=== PATIENT | female | born 1930 | race Caucasian/White ===

== ENCOUNTER → 2016-10-13 | Day surgery (SDC) | payer MEDICARE, OTHER ==
[~2016-10-13] VITALS: Ht 160 cm; Wt 77.5 kg
[~2016-10-13] MED LIST: AMLO10TA2 PO; BUPIVACAINE HCL PF 0.5% 30 ML VIAL ONE; CEPH-459 PO; CEPH-460 PO; CHLORHEXIDINE GLUCONATE 2 % 1 PACK (2 CLOTHS) TOPICAL PRN; FAMOTIDINE 20 MG/2 ML VIAL ONE; HYDR25TA5 PO; INSULIN HUMAN REGULAR 1,000 UNITS/10 ML VIAL SQ PRN; LACTATED RINGER'S 1000 ML IV PRN; LIDOCAINE HCL 2% 50 ML VIAL ONE; MAGN100T2 PO; MAGN250T11 PO; METOPROLOL TARTRATE 25 MG TAB PO PRN; NEOMYCIN/POLYMYXIN 1 ML G.U. IRRIGANT ONE; POTA-163 PO; POVIDONE IODINE 5% (ANTISEPSIS KIT) 4 APPLICATIONS EACH NARE PRN; PRIM50TA5 PO; PROPOFOL 200 MG/20 ML AMP IV ONE; SODIUM CHLORID 0.9% 500 ML IV PRN; TYLE325T PO; TYLETAB34 PO; ceFAZolin 1,000 MG/NS 100 ML IV SCH
[2016-10-13 10:30] LABS: HEMATOCRIT 45.2 % (35.0-46.0); MEAN CELL VOLUME 87.2 FL (80.0-100.0); MEAN CORPUSCULAR HEMOGLOBIN 28.6 PG (27.0-34.0); MEAN CORPUSCULAR HGB CONC 32.8 % (32.0-36.0); PLATELET COUNT 281 TH/MM3 (150-450); RED BLOOD COUNT 5.19 MIL/MM3 (4.00-5.30); RED CELL DISTRIBUTION WIDTH 12.9 % (11.6-17.2); REVIEW FLAG FINAL; WHITE BLOOD COUNT 8.9 TH/MM3 (4.0-11.0)
[2016-10-13] MEDS: MIDAZOLAM HCL 2 MG/2 ML VIAL ONE (12:05)
[2016-10-13 13:09] VITALS: TEMP 97.6
[2016-10-13 13:45] VITALS: BP 145/68; PULSE 58; RESP 14; O2SAT 97
--- NOTE | 2016-10-13 14:18 | MP ---
cc: KEYON HAYNES III, M.D. DATE OF SURGERY: 10/13/2016 PREOPERATIVE DIAGNOSIS Right middle mucous cyst. POSTOPERATIVE DIAGNOSIS Right middle mucous cyst. PROCEDURE Right middle finger mucous cyst excision. SURGEON Keyon Haynes III, MD DETAILS OF PROCEDURE The patient was brought to the operating room and placed supine on the operating table. After the correct site and side of surgery were verified by members of each team in the room multiple times including the patient and myself and after adequate preoperative markings and preoperative written consent were verified by everyone and after preoperative timeout was performed to everyone's satisfaction and after adequate IV sedation had been achieved the right upper extremity was prepped and draped in the traditional sterile surgical fashion. A 50/50 mixture of 2% plain lidocaine and 0.5% plain Marcaine was infiltrated in the skin and subcutaneous tissue in the dorsal aspect of the finger as well as on the radial side of the metacarpal to provide a digital block. Two small fingers from a size 6 sterile glove were used and a finger tourniquet was fashioned. A T-shaped incision was made overlying the dorsal aspect of the DIP joint and the flaps were elevated. Bipolar electrocautery was used sparingly. The attenuated area of the extensor tendon was identified and debrided and this was directly in continuity with the mucous cyst. A large osteophyte was then debrided and the surrounding area of tissues were then debrided with a curet to induce scar tissue formation. The joint was thoroughly flushed with saline. The attenuated skin was debrided. There were no other anatomic abnormalities. The skin edges were re-approximated using running and interrupted 5-0 nylon sutures. Sutures were placed as well in the area where the cyst used to be which was debrided back of attenuated skin. The hand and arm were thoroughly cleansed and dried. Betadine and Adaptic was then applied atop the finger. The finger tourniquet was released and all the fingers became immediately soft, pink and warm and had brisk capillary refill of less than two seconds. A bulky soft dressing was applied. The patient was awakened from anesthesia and transported to the post-anesthesia care unit awake and in stable condition at the end of the case. Sponge, needle and instrument counts were correct at the end of the case as reported by the nurses in the room. MD AMOL Miller III /1:07 PM /1:53 PM
--- NOTE | 2016-10-14 08:42 | EKG ---
Date Performed: 10/13/2016 Time Performed: 10:31:07 PTAGE: 86 years EKG: SINUS BRADYCARDIA NONSPECIFIC ST & T-WAVE ABNORMALITY BORDERLINE ECG PREVIOUS TRACING : 02/23/2005 13.14 No significant change from previous tracing noted. DOCTOR: Rod López Interpretating Date/Time 10/14/2016 08:41:05
== END | disposition home or self-care (01) ==
LOC: PHSDC 09:43
PROVIDERS: ATTEND Orthopaedic Surgery Hand Surgery
DX: M67.843 Other specified disorders of tendon, right hand (principal); R00.1 Bradycardia, unspecified; I10 Essential (primary) hypertension; E78.5 Hyperlipidemia, unspecified; G25.0 Essential tremor; Z79.899 Other long term (current) drug therapy
CPT/HCPCS: 01810; 26160; 36415; 85027; 93005; J0690; J2250; J7120